=== PATIENT | male | born 1990 | race Caucasian/White ===

== ENCOUNTER 2016-07-01 00:31 | Emergency (ER) | payer OTHER ==
[~2016-07-01] VITALS: Ht 175.3 cm; Wt 105.0 kg
[2016-07-01 00:55] VITALS: BP 140/100
[2016-07-01] MEDS ORDERED: POVIDONE-IODINE 10% 120 ML SOLUTION TP ONE (04:27)
[2016-07-01] MEDS ORDERED: LIDOCAINE HCL BUFFERED 1% 20 ML VIAL ONE (04:28)
== END 2016-07-01 07:57 | disposition home or self-care (01) ==
LOC: EMS 00:34
DX: S61.311A Laceration without foreign body of left index finger with damage to nail, initial encounter (principal); Z88.0 Allergy status to penicillin; W31.89XA Contact with other specified machinery, initial encounter; Y93.89 Activity, other specified; Y92.89 Other specified places as the place of occurrence of the external cause; Y99.8 Other external cause status
CPT/HCPCS: 11730; 99284; J3490; 99283